=== PATIENT | male | born 1945 | race Caucasian/White ===

== ENCOUNTER → 2016-11-19 | Outpatient (CLI) | payer OTHER, MEDICARE ==
[2016-11-19 09:09] LABS: EST GLOM FILT AFRICAN AMERICAN > 60 ml/min
== END ==
LOC: CT 03:25 → LAB 03:25 → CT 10:00
PROVIDERS: Radiology Diagnostic Radiology
DX: N20.0 Calculus of kidney (principal); R94.5 Abnormal results of liver function studies; K76.0 Fatty (change of) liver, not elsewhere classified; N26.1 Atrophy of kidney (terminal); N28.1 Cyst of kidney, acquired; R74.8 Abnormal levels of other serum enzymes; R10.10 Upper abdominal pain, unspecified